=== PATIENT | male | born 1990 | race Caucasian/White ===

== ENCOUNTER 2019-07-20 21:53 | Emergency (ER) | payer OTHER ==
[~2019-07-20] VITALS: Ht 165.1 cm; Wt 127.0 kg
[2019-07-20 21:55] VITALS: BP 159/100
[2019-07-20] MEDS ORDERED: IBUPROFEN 600 MG TAB PO ONE (22:05)
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
--- NOTE | 2019-07-20 22:09 | NUR ---
TO ER BED 2
[2019-07-20] MEDS ORDERED: KETOROLAC 30 MG/ML VIAL IM ONE (23:00)
[2019-07-20 23:28] VITALS: BP 159/100
--- NOTE | 2019-07-20 23:28 | NUR ---
PT DISCHARGED WITH PAPERWORK. EDUCATED PT REGARDING MEDICATIONS AND D/C DIAGNOSIS. PT VERBALIZED UNDERSTANDING. TOLD PT TO FOLLOW UP WITH PCP AND WHEN TO RETURN TO ED. PT AT STABLE CONDITION. ALL QUESTIONS ANSWERED.
== END 2019-07-20 23:28 | disposition home or self-care (01) ==
LOC: MED 21:53
DX: J11.1 Influenza due to unidentified influenza virus with other respiratory manifestations (principal); Z98.890 Other specified postprocedural states
CPT/HCPCS: 87804; 96372; 99283; J1885